=== PATIENT | female | born 1960 | race African-American/Black ===

== ENCOUNTER 2016-08-02 16:56 | Inpatient (IN) | payer SELFPAY ==
[~2016-08-02] VITALS: Ht 160 cm; Wt 73.6 kg
[2016-08-02] VITALS (7 sets, daily range): BP systolic 126–192; BP diastolic 66–94; PULSE 91–120; RESP 20–22; TEMP 97.9–98.9; O2SAT 83–96
[2016-08-02] MEDS ORDERED: RESP: ALBUTEROL 2.5 MG/IPRATROPIUM 0.5 MG NEB (SCH) ONE (17:10)
[2016-08-02] MEDS: RESP: ALBUTEROL 2.5 MG/IPRATROPIUM 0.5 MG NEB (SCH) INH ×2 (17:15→17:16)
[2016-08-02] MEDS ORDERED: SODIUM CHLORIDE 0.9% FLUSH 5 ML FLUSH IVF PRN (17:15)
[2016-08-02] MEDS ORDERED: methylPREDNISolone SOD SUCC 125 MG/2 ML VIAL IVP ONE (17:15)
--- NOTE | 2016-08-02 17:18 | PD ---
HPI Chief Complaint: Respiratory Distress Time Seen by Provider: 17:11 Travel History International Travel<30 days: No Contact w/Intl Traveler<30days: No Traveled to known affect area: No History of Present Illness HPI The patient was seen and examined in the presence of the nurse. She complains of shortness of breath. Patient arrives critically ill and respiratory failure. She is hypoxic with room air saturations of 85 and dyspneic and wheezing and tachypneic. She is a smoker. She denies any diagnosed medical history likely has COPD based on history. She's had some congestion but no productive cough or fever or chest pain. Symptoms are severe. Duration 2 days. No alleviating factors. PFSH Social History Alcohol Use: No Tobacco Use: Yes Substance Use: No Allergies-Medications (Allergen,Severity, Reaction): Coded Allergies: UNOBTAINABLE (Unverified , 08/02/16) Review of Systems General / Constitutional: No: Fever Eyes: No: Visual changes HENT: Positive: Congestion, No: Headaches Cardiovascular: No: Chest Pain or Discomfort Respiratory: Positive: Cough, Shortness of Breath, Wheezing Gastrointestinal: No: Abdominal Pain Genitourinary: No: Dysuria Musculoskeletal: No: Pain Skin: No Rash Neurologic: No: Weakness Psychiatric: No: Depression Endocrine: No: Polydipsia Hematologic/Lymphatic: No: Easy Bruising Physical Exam Narrative GENERAL: Well-nourished, well-developed patient in respiratory distress. SKIN: Warm and dry. HEAD: Atraumatic. Normocephalic. EYES: Pupils equal and round. No scleral icterus. No injection or drainage. ENT: No nasal bleeding or discharge. Mucous membranes pink and moist. NECK: Trachea midline. No JVD. CARDIOVASCULAR: Regular rate and rhythm. No murmur appreciated. Sinus tachycardia 110 RESPIRATORY: Positive accessory muscle use. Diffuse expiratory wheezing. Breath sounds equal bilaterally. No crackles. Respiratory rate in the 40s GASTROINTESTINAL: Abdomen soft, non-tender, nondistended. Hepatic and splenic margins not palpable. MUSCULOSKELETAL: No obvious deformities. No clubbing. No cyanosis. No edema. NEUROLOGICAL: Awake and alert. No obvious cranial nerve deficits. Motor grossly within normal limits. Normal speech. PSYCHIATRIC: Appropriate mood and affect; insight and judgment normal Data Data Last Documented VS Vital Signs Date Time Temp Pulse Resp B/P Pulse Ox O2 Delivery O2 Flow Rate FiO2 08/02/16 17:19 102 22 192/94 92 Nasal Cannula 5 08/02/16 17:00 97.9 Orders Albuterol-Ipratropium Neb (Duoneb Neb) (08/02/16 17:10) Complete Blood Count With Diff (08/02/16 17:11) Basic Metabolic Panel (Bmp) (08/02/16 17:11) Iv Access Insert/Monitor (08/02/16 17:11) Ecg Monitoring (08/02/16 17:11) Oximetry (08/02/16 17:11) Oxygen Administration (08/02/16 17:11) Chest, Single Ap (08/02/16 17:11) Sodium Chloride 0.9% Flush (Ns Flush) (08/02/16 17:15) Methylprednisolone So Succ Inj (Solumedr (08/02/16 17:15) Albuterol-Ipratropium Neb (Duoneb Neb) (08/02/16 17:15) Diet Regular Basic (08/02/16 Dinner) Vital Signs (Adult) MARJORIE.Q4H (08/02/16 18:23) Albuterol-Ipratropium Neb (Duoneb Neb) (08/02/16 20:00) Albuterol Neb (Albuterol Neb) (08/02/16 18:30) Methylprednisolone So Succ Inj (Solumedr (08/02/16 22:00) Enalaprilat Inj (Vasotec Inj) (08/02/16 18:30) Albuterol-Ipratropium Neb (Duoneb Neb) (08/02/16 18:45) Admit Order (Ed Use Only) (08/02/16 18:35) Labs Laboratory Tests Test 08/02/16 17:10 White Blood Count 10.8 TH/MM3 Red Blood Count 4.59 MIL/MM3 Hemoglobin 14.4 GM/DL Hematocrit 42.6 % Mean Corpuscular Volume 92.8 FL Mean Corpuscular Hemoglobin 31.3 PG Mean Corpuscular Hemoglobin 33.8 % Concent Red Cell Distribution Width 13.7 % Platelet Count 190 TH/MM3 Mean Platelet Volume 9.7 FL Neutrophils (%) (Auto) 70.2 % Lymphocytes (%) (Auto) 19.5 % Monocytes (%) (Auto) 5.2 % Eosinophils (%) (Auto) 4.6 % Basophils (%) (Auto) 0.5 % Neutrophils # (Auto) 7.6 TH/MM3 Lymphocytes # (Auto) 2.1 TH/MM3 Monocytes # (Auto) 0.6 TH/MM3 Eosinophils # (Auto) 0.5 TH/MM3 Basophils # (Auto) 0.1 TH/MM3 CBC Comment DIFF FINAL Differential Comment Sodium Level 139 MEQ/L Potassium Level 4.3 MEQ/L Chloride Level 106 MEQ/L Carbon Dioxide Level 27.0 MEQ/L Anion Gap 6 MEQ/L Blood Urea Nitrogen 12 MG/DL Creatinine 0.83 MG/DL Estimat Glomerular Filtration 71 ML/MIN Rate Random Glucose 130 MG/DL Calcium Level 8.9 MG/DL MDM Medical Decision Making Medical Screen Exam Complete: Yes Emergency Medical Condition: Yes Medical Record Reviewed: Yes Differential Diagnosis Differential diagnosis includes COPD, asthma, pneumonia, bronchitis, PE. Narrative Course I have reviewed the patient's electronic medical record. Patient arrives critically ill and acute hypoxic respiratory failure. IV placed I gave her IV steroids and series of 3 nebulizer treatments Placed her on oxygen Extended cardiac monitoring reveals sinus tachycardia without ectopy I reviewed her chest x-ray which shows atelectasis in the bases but no consolidation CBC is normal Metabolic profile is normal On recheck she is much improved and no longer critically ill but still wheezing and short of breath I gave her a fourth nebulizer treatment I have weaned her down to a nasal cannula saturation in the mid 90s Reviewed with hospitalist for admission for respiratory failure which I suspect is COPD given her lifelong smoking but has never really had medical workup Critical Care Narrative Aggregate critical care time was 35 minutes. Time to perform other separately billable procedures was not included in the critical care time. My time did not include minutes spent treating any other patients simultaneously or on activities that did not directly contribute to the patient's treatment. The services I provided to this patient were to treat and/or prevent clinically significant deterioration that could result in: Cardiopulmonary arrest, hypoxemic brain injury, cardiac arrhythmia I provided critical care services requiring my management, as noted below: Chart data review, documentation time, medication orders and management, vital sign assessments/reviewing monitor data, ordering and reviewing lab tests, ordering and interpreting/reviewing x-rays and diagnostic studies, care of the patient and discussion of the patient with the admitting physicians. Diagnosis Primary Impression: Respiratory failure with hypoxia Qualified Code: J96.01 - Acute respiratory failure with hypoxia Admitting Information Admitting Physician Requests: it Armani Liu MD Aug 02, 2016 17:18
[2016-08-02 17:37] LABS: AUTOMATED NEUTROPHIL # 7.6 TH/MM3 (1.8-7.7); BASOPHIL # 0.1 TH/MM3 (0-0.2); BASOPHIL % 0.5 % (0.0-2.0); EOSINOPHIL # 0.5 TH/MM3 (0-0.4); EOSINOPHIL % 4.6 % (0.0-4.0); HEMATOCRIT 42.6 % (35.0-46.0); HEMO FLAGS DIFF FINAL; LYMPH % 19.5 % (9.0-44.0); LYMPHOCYTE # 2.1 TH/MM3 (1.0-4.8); MEAN CELL VOLUME 92.8 FL (80.0-100.0); MEAN CORPUSCULAR HEMOGLOBIN 31.3 PG (27.0-34.0); MEAN CORPUSCULAR HGB CONC 33.8 % (32.0-36.0); MONO % 5.2 % (0.0-8.0); NEUT % 70.2 % (16.0-70.0); PLATELET COUNT 190 TH/MM3 (150-450); RED BLOOD COUNT 4.59 MIL/MM3 (4.00-5.30); RED CELL DISTRIBUTION WIDTH 13.7 % (11.6-17.2); WHITE BLOOD COUNT 10.8 TH/MM3 (4.0-11.0)
--- NOTE | 2016-08-02 17:46 | RADRPT ---
EXAM DATE/TIME: 08/02/2016 17:23 [facility] COMPARISON: No previous studies available for comparison. INDICATIONS : Shortness of breath. MEDICAL HISTORY : None. SURGICAL HISTORY : None. ENCOUNTER: Initial ACUITY: 1 day PAIN SCORE: 0/10 LOCATION: Bilateral chest FINDINGS: A single view of the chest demonstrates the lungs to be symmetrically aerated without evidence of mas s, infiltrate or effusion. There is mild streaky opacity of the lung bases. There are overlying elect rocardiogram leads and oxygen tubing. The cardiomediastinal contours are unremarkable. Osseous struc tures are intact. CONCLUSION: Mild streaky opacity at the lung bases most consistent with atelectasis. Marck Reza MD on August 02, 2016 at 17:44 Board Certified Radiologist. This report was verified electronically.
[2016-08-02 18:12] LABS: POTASSIUM 4.3 MEQ/L (3.5-5.1)
[2016-08-02] MEDS ORDERED: ENALAPRILAT 1.25 MG/ML VIAL IV PUSH PRN (18:30)
[2016-08-02] MEDS ORDERED: RESP: ALBUTEROL 1.25 MG/3 ML NEB (PRN) NEB (18:30)
[2016-08-02] MEDS ORDERED: RESP: ALBUTEROL 2.5 MG/IPRATROPIUM 0.5 MG NEB (SCH) NEB ONE (18:45)
[2016-08-02] MEDS: RESP: ALBUTEROL 2.5 MG/IPRATROPIUM 0.5 MG NEB (SCH) NEB (19:32)
[2016-08-02] MEDS: methylPREDNISolone SOD SUCC 40 MG/1 ML VIAL IV PUSH SCH (22:26)
[2016-08-03] VITALS (8 sets, daily range): BP systolic 127–140; BP diastolic 57–72; PULSE 78–115; RESP 18–20; TEMP 96–96.8; O2SAT 92–100
[2016-08-03] MEDS: RESP: ALBUTEROL 2.5 MG/IPRATROPIUM 0.5 MG NEB (SCH) NEB ×6 (01:14→19:01)
--- NOTE | 2016-08-03 01:25 | HHI.HP ---
[facility] Primary [facility] Physician No Primary Care Physician Admission Diagnosis acute hypoxic resp failure Diagnoses: Chief Complaint: sob, cough Travel History International Travel<30 Days: No Contact w/Intl Traveler <30 Da: No Traveled to Known Affected Are: No History of Present Illness History taken from patient and ED physician. 55 y/o female with a history of presented with sob and cough that has been getting worse the last 2 day. Patient states she has been coughing and has had thick sputum when she coughs and it is causing her to have shortness of breath. She states this is the first time she has had these symptoms. She denies any COPD, and any use of nebulizers. Never been hospitalized. Not on home oxygen. Denies any recent travels. She is a smoker, she smokes 1/2 ppd. Since age of [age] years old. As per ER records, patient was presenting when acute respiratory distress with O2 sats of 85% on room air upon initial arrival. She was using respiratory sensory muscles. She was given continuous nebulizer treatments and Solu-Medrol IV after which she improved. She denies any chest pain, fever, chills, abdominal pain. No history of DVTs, or calf pain. Review of Systems Constitutional: DENIES: Fever, Chills Respiratory: COMPLAINS OF: Cough, Sputum production, Shortness of breath Gastrointestinal: DENIES: Constipation, Diarrhea, Nausea, Vomiting Genitourinary: DENIES: Hematuria, Dysuria Musculoskeletal: DENIES: Back pain, Neck pain Hematologic/lymphatic: DENIES: Lymphadenopathy Immunologic/allergic: DENIES: Urticaria Neurologic: DENIES: Headache Past Family Social History Past Medical History Patient denies any medical history Past Surgical History Reported Medications Reported Meds & Active Scripts Active Active Prescriptions or Reported Medications Unobtainable Allergies: Coded Allergies: UNOBTAINABLE (Unverified , 08/02/16) Active Ordered Medications Current Medications Medications (Trade) Dose Ordered Sig/Jakob Route Start Time Stop Time Status Last Admin (NS Flush) 2 ml UNSCH PRN IVF 08/02/16 17:15 (SoluMEDROL INJ) 40 mg Q8HR IV PUSH 08/02/16 22:00 08/02/16 22:26 (Vasotec Inj) 1.25 mg Q8H PRN IV PUSH 08/02/16 18:30 Family History Mom: Asthma Social History Tobacco use: 1/2 ppd since 14 years old Alcohol use: socially Illicit drug use: denies Physical Exam Vital Signs Vital Signs Date Time Temp Pulse Resp B/P Pulse Ox O2 Delivery O2 Flow Rate FiO2 08/03/16 01:11 78 18 132/68 96 Nasal Cannula 4 08/02/16 21:46 91 20 126/66 96 Nasal Cannula 3 08/02/16 19:32 95 Nasal Cannula 4.00 08/02/16 18:48 120 22 158/94 94 Nasal Cannula 4 08/02/16 17:19 102 22 192/94 92 Nasal Cannula 5 08/02/16 17:19 84 Room Air 08/02/16 17:17 94 Nasal Cannula 2.00 08/02/16 17:00 97.9 102 22 192/94 84 08/02/16 16:57 98.9 110 22 172/93 83 Room Air Physical Exam GENERAL: This is a well-nourished, well-developed patient, in no apparent distress. SKIN: No rashes, ecchymoses or lesions. Cool and dry. HEAD: Atraumatic. Normocephalic. EYES: Pupils equal round and reactive. ENT: Nose without bleeding, purulent drainage or septal hematoma. Airway patent. NECK: Trachea midline. No JVD CARDIOVASCULAR: Regular rate and rhythm without murmurs, gallops, or rubs. RESPIRATORY: Bilateral expiratory wheezing, tight lung sounds. Patient was receiving nebulizer treatments at the time of our examination. GASTROINTESTINAL: Abdomen soft, non-tender, nondistended. No hepato-splenomegaly , or palpable masses. No guarding. MUSCULOSKELETAL: Extremities without clubbing, cyanosis, or edema. No joint tenderness, effusion, or edema noted. No calf tenderness. NEUROLOGICAL: Awake and alert. Motor and sensory grossly within normal limits. Normal speech. Laboratory Laboratory Tests Test 08/02/16 17:10 White Blood Count 10.8 Red Blood Count 4.59 Hemoglobin 14.4 Hematocrit 42.6 Mean Corpuscular Volume 92.8 Mean Corpuscular Hemoglobin 31.3 Mean Corpuscular Hemoglobin 33.8 Concent Red Cell Distribution Width 13.7 Platelet Count 190 Mean Platelet Volume 9.7 Neutrophils (%) (Auto) 70.2 Lymphocytes (%) (Auto) 19.5 Monocytes (%) (Auto) 5.2 Eosinophils (%) (Auto) 4.6 Basophils (%) (Auto) 0.5 Neutrophils # (Auto) 7.6 Lymphocytes # (Auto) 2.1 Monocytes # (Auto) 0.6 Eosinophils # (Auto) 0.5 Basophils # (Auto) 0.1 CBC Comment DIFF FINAL Differential Comment Sodium Level 139 Potassium Level 4.3 Chloride Level 106 Carbon Dioxide Level 27.0 Anion Gap 6 Blood Urea Nitrogen 12 Creatinine 0.83 Estimat Glomerular Filtration 71 Rate Random Glucose 130 Calcium Level 8.9 Result Diagram: 08/02/16170908/02/161709 Imaging Last Impressions Chest X-Ray 08/02/161710 Signed Impressions: Service Date/Time: Tuesday, August 02, 2016 17:23 - CONCLUSION: Mild streaky opacity at the lung bases most consistent with atelectasis. Marck Reza MD Assessment and Plan Problem List: (1) COPD exacerbation ICD Code: J44.1 Status: Acute Assessment and Plan 55 y/o female with no medical history presented with: COPD exacerbation Images: Chest x-ray shows Mild streaky opacity at the lung bases most consistent with atelectasis -Solu-Medrol IV Q8hr -DuoNeb's scheduled and PRN -Oxygen as needed -Case management consult for help with outpatient PCP. Patient will need MDI prescriptions prior to hospital discharge. Would also need slow taper of prednisone therapy upon discharge. DVT prophylaxis: SCDs GI prophylaxis on pantoprazole. Written by Dottie VELAZQUEZ, acting as scribe for Dr. Martínez on 08/03 at 0115. The documentation accurately reflects the work performed [id number] and decisions made by me and the physician Dr Martínez on 08/03. The documentation accurately reflects the work performed [id number] by me on at 0115 Discussed Condition With Patient and ED physician Physician Certification 2 Midnight Certification Type: Admission for Inpatient Services Order for Inpatient Services The services are ordered in accordance with Medicare regulations or non- Medicare payer requirements, as applicable. In the case of services not specified as inpatient-only, they are appropriately provided as inpatient services in accordance with the 2-midnight benchmark. Estimated LOS (days): 2 days is the estimated time the patient will need to remain in the hospital, assuming treatment plan goals are met and no additional complications. Post-Hospital Plan: Dottie Cruz Aug 03, 2016 01:25 Fish Martínez MD Aug 03, 2016 07:55
[2016-08-03] MEDS ORDERED: ASPI81CH CHEW (02:26)
[2016-08-03] MEDS: methylPREDNISolone SOD SUCC 40 MG/1 ML VIAL IV PUSH SCH ×3 (06:02→21:44)
[2016-08-03] MEDS ORDERED: RESP: ALBUTEROL 0.63 MG/3 ML NEB (PRN) NEB (09:00)
[2016-08-03] MEDS ORDERED: ALBUTEROL SULFATE 90 MCG/ACT HFA 8 GM INHALER INH PRN (09:00)
[2016-08-03 09:46] LABS: AUTOMATED NEUTROPHIL # 9.3 TH/MM3 (1.8-7.7); BASOPHIL % 0.2 % (0.0-2.0); HEMO FLAGS DIFF FINAL; LYMPH % 10.6 % (9.0-44.0); LYMPHOCYTE # 1.1 TH/MM3 (1.0-4.8); MEAN CELL VOLUME 93.2 FL (80.0-100.0); MEAN CORPUSCULAR HEMOGLOBIN 30.8 PG (27.0-34.0); MEAN CORPUSCULAR HGB CONC 33.1 % (32.0-36.0); MONO % 2.2 % (0.0-8.0); PLATELET COUNT 199 TH/MM3 (150-450); RED CELL DISTRIBUTION WIDTH 13.7 % (11.6-17.2); WHITE BLOOD COUNT 10.6 TH/MM3 (4.0-11.0)
[2016-08-03 10:33] LABS: POTASSIUM 3.6 MEQ/L (3.5-5.1)
[2016-08-03 10:52] LABS: BLOOD GAS CARBOXYHEMOGLOBIN 1.2 % (0-4); BLOOD GAS HCO3 24 mmol/L (22-26); BLOOD GAS METHEMOGLOBIN 1.2 % (0-2); BLOOD GAS O2 HGB SATURATION 90 % (90-100); BLOOD GAS OXYGEN CONTENT 17.1 Vol % (12.0-20.0); BLOOD GAS PCO2 38 mmHg (38-42); BLOOD GAS PO2 66 mmHg (61-120); BLOOD GAS TOTAL HGB 13.6 G/DL (12.0-16.0); TEMP CORR TO 98.6
[2016-08-03 10:53] LABS: CRITICAL VALUE NO; DRAW SITE RT RADIAL; LITER FLOW 2 L/M; NUMBER OF ARTERIAL PUNCTURES 2; OXYGEN DEVICE NASAL CANNULA; STAT NO; ULNAR PULSE PRESENT
[2016-08-03] MEDS: PANTOPRAZOLE SOD 40 MG DELAYED RELEASE TAB PO SCH (11:44)
--- NOTE | 2016-08-03 12:53 | HHI.PR ---
Subjective Remarks Follow-up COPD and respiratory failure. Improving shortness of breath. Discussed with RN Objective Vitals Vital Signs Date Time Temp Pulse Resp B/P Pulse Ox O2 Delivery O2 Flow Rate FiO2 08/03/16 08:17 94 Nasal Cannula 2.00 08/03/16 07:50 96.7 109 20 129/65 94 08/03/16 02:48 96.7 93 18 127/70 100 08/03/16 01:11 78 18 132/68 96 Nasal Cannula 4 08/02/16 21:46 91 20 126/66 96 Nasal Cannula 3 08/02/16 19:32 95 Nasal Cannula 4.00 08/02/16 18:48 120 22 158/94 94 Nasal Cannula 4 08/02/16 17:19 102 22 192/94 92 Nasal Cannula 5 08/02/16 17:19 84 Room Air 08/02/16 17:17 94 Nasal Cannula 2.00 08/02/16 17:00 97.9 102 22 192/94 84 08/02/16 16:57 98.9 110 22 172/93 83 Room Air I/O 08/02/16 08/02/16 08/02/16 08/03/16 08/03/16 08/03/16 07:00 15:00 23:00 07:00 15:00 23:00 Intake Total 300 ml Balance 300 ml Intake Oral 300 ml # Voids 0 # Bowel Movements 0 Result Diagram: 08/03/16 0853 08/03/16 0853 Imaging Last Impressions Chest X-Ray 08/02/16 1711 Signed Impressions: Service Date/Time: Tuesday, August 02, 2016 17:23 - CONCLUSION: Mild streaky opacity at the lung bases most consistent with atelectasis. Marck Reza MD Objective Remarks GENERAL: This is a well-nourished, well-developed patient, in no apparent distress. SKIN: No rashes, ecchymoses or lesions. Cool and dry. HEAD: Atraumatic. Normocephalic. EYES: Pupils equal round and reactive. ENT: Nose without bleeding, purulent drainage or septal hematoma. Airway patent. NECK: Trachea midline. No JVD CARDIOVASCULAR: Regular rate and rhythm without murmurs, gallops, or rubs. RESPIRATORY: Improving expiratory wheezes. GASTROINTESTINAL: Abdomen soft, non-tender, nondistended. No guarding. MUSCULOSKELETAL: Extremities without clubbing, cyanosis, or edema. No joint tenderness, effusion, or edema noted. No calf tenderness. NEUROLOGICAL: Awake and alert. Motor and sensory grossly within normal limits. Normal speech. Procedures none A/P Problem List: (1) COPD exacerbation ICD Code: J44.1 Status: Acute Assessment and Plan 55 y/o female with no medical history presented with: COPD exacerbation Images: Chest x-ray shows Mild streaky opacity at the lung bases most consistent with atelectasis -Solu-Medrol IV Q8hr -DuoNeb's scheduled and PRN -Wean oxygen to keep saturation over 92%, walk test. -Start Z-Josias. Tobacco cessation PFTs outpatient -Case management consult for help with outpatient PCP. Patient will need MDI prescriptions prior to hospital discharge. Would also need slow taper of prednisone therapy upon discharge. Hyperglycemia. Check A1c DVT prophylaxis: SCDs GI prophylaxis on pantoprazole. Discharge Planning Discharge in 1-2 days Lavelle Henriquez MD Aug 03, 2016 12:53
--- NOTE | 2016-08-03 13:46 | HHI.PR ---
Objective Vitals Vital Signs Date Time Temp Pulse Resp B/P Pulse Ox O2 Delivery O2 Flow Rate FiO2 08/03/16 08:17 94 Nasal Cannula 2.00 08/03/16 07:50 96.7 109 20 129/65 94 08/03/16 02:48 96.7 93 18 127/70 100 08/03/16 01:11 78 18 132/68 96 Nasal Cannula 4 08/02/16 21:46 91 20 126/66 96 Nasal Cannula 3 08/02/16 19:32 95 Nasal Cannula 4.00 08/02/16 18:48 120 22 158/94 94 Nasal Cannula 4 08/02/16 17:19 102 22 192/94 92 Nasal Cannula 5 08/02/16 17:19 84 Room Air 08/02/16 17:17 94 Nasal Cannula 2.00 08/02/16 17:00 97.9 102 22 192/94 84 08/02/16 16:57 98.9 110 22 172/93 83 Room Air I/O 08/02/16 08/02/16 08/02/16 08/03/16 08/03/16 08/03/16 07:00 15:00 23:00 07:00 15:00 23:00 Intake Total 300 ml Balance 300 ml Intake Oral 300 ml # Voids 0 # Bowel Movements 0 Result Diagram: 08/03/1653 08/03/1653 Objective Remarks GENERAL: This is a well-nourished, well-developed patient, in no apparent distress. SKIN: No rashes, ecchymoses or lesions. Cool and dry. HEAD: Atraumatic. Normocephalic. EYES: Pupils equal round and reactive. ENT: Nose without bleeding, purulent drainage or septal hematoma. Airway patent. NECK: Trachea midline. No JVD CARDIOVASCULAR: Regular rate and rhythm without murmurs, gallops, or rubs. RESPIRATORY: Bilateral expiratory wheezing, tight lung sounds. Patient was receiving nebulizer treatments at the time of our examination. GASTROINTESTINAL: Abdomen soft, non-tender, nondistended. No hepato-splenomegaly , or palpable masses. No guarding. MUSCULOSKELETAL: Extremities without clubbing, cyanosis, or edema. No joint tenderness, effusion, or edema noted. No calf tenderness. NEUROLOGICAL: Awake and alert. Motor and sensory grossly within normal limits. Normal speech. A/P Problem List: (1) COPD exacerbation ICD Code: J44.1 Status: Acute Assessment and Plan 55 y/o female with no medical history presented with: COPD exacerbation Images: Chest x-ray shows Mild streaky opacity at the lung bases most consistent with atelectasis -Solu-Medrol IV Q8hr -DuoNeb's scheduled and PRN -Oxygen as needed -Case management consult for help with outpatient PCP. Patient will need MDI prescriptions prior to hospital discharge. Would also need slow taper of prednisone therapy upon discharge. DVT prophylaxis: SCDs GI prophylaxis on pantoprazole. Lavelle Henriquez MD Aug 03, 2016 13:46
[2016-08-03] MEDS ORDERED: PRED20 PO (17:37)
[2016-08-03] MEDS ORDERED: ZITH250T PO (17:37)
[2016-08-03] MEDS ORDERED: IPRAAER INH (17:37)
[2016-08-03] MEDS ORDERED: VENTAER INH (17:37)
[2016-08-03] MEDS ORDERED: OXYGENTANK NAS.CANULA (17:38)
--- NOTE | 2016-08-03 17:38 | HHI.DCPOC ---
Discharge Care Plan Diagnosis: (1) Respiratory failure with hypoxia (2) COPD exacerbation Your Health Problems Are: Difficulty with ADL Exercise Tolerance Goals to Promote Your Health * To prevent worsening of your condition and complications * To maintain your health at the optimal level Directions to Meet Your Goals Take your medications as prescribed Follow your dietary instruction Follow activity as directed Keep your appointments as scheduled Take your immunizations and boosters as scheduled If your symptoms worsen call your PCP, if no PCP go to Urgent Care Center or Emergency Room Smoking is Dangerous to Your Health. Avoid second hand smoke Call the 24-hour hour crisis hotline for domestic abuse at Lavelle Henriquez MD Aug 03, 2016 17:38
[2016-08-03] MEDS ORDERED: DOCUSATE SODIUM 50 MG/SENNA 8.6 MG TAB PO PRN (17:45)
[2016-08-03] MEDS ORDERED: DOCUSATE SODIUM 100 MG CAP PO PRN (17:45)
[2016-08-03] MEDS ORDERED: ALUMINUM/MAGNESIUM/SIMETH 30 ML CUP PO PRN (17:45)
[2016-08-03] MEDS ORDERED: ONDANSETRON HCL 4 MG/2 ML VIAL IV PRN (17:45)
[2016-08-03] MEDS ORDERED: ACETAMINOPHEN 325 MG TAB PO PRN (17:45)
[2016-08-03] MEDS ORDERED: CALCIUM CARBONATE 500 MG CHEWABLE TAB CHEW PRN (17:45)
[2016-08-03] MEDS ORDERED: MAGNESIUM HYDROXIDE SUSP 30 ML CUP PO PRN (17:45)
[2016-08-03] MEDS ORDERED: AZITHROMYCIN 250 MG TAB PO ONE (18:00)
[2016-08-03 20:01] LABS: HEMOGLOBIN A1a 1.1 %; HEMOGLOBIN A1b 0.9 %; HEMOGLOBIN Ao 84.5 %; HEMOGLOBIN F 0.8 %; HEMOGLOBIN LA1C 2.4 %; HEMOGLOBIN P3 3.9 %
[2016-08-04] VITALS (8 sets, daily range): BP systolic 135–158; BP diastolic 66–83; PULSE 91–102; RESP 18–20; TEMP 96.2–98.4; O2SAT 90–98
[2016-08-04] MEDS: methylPREDNISolone SOD SUCC 40 MG/1 ML VIAL IV PUSH SCH ×3 (05:39→23:04)
[2016-08-04] MEDS: AZITHROMYCIN 250 MG TAB PO SCH (07:34)
[2016-08-04] MEDS: PANTOPRAZOLE SOD 40 MG DELAYED RELEASE TAB PO SCH (07:34)
[2016-08-04] MEDS: RESP: ALBUTEROL 2.5 MG/IPRATROPIUM 0.5 MG NEB (SCH) NEB ×4 (08:07→20:53)
--- NOTE | 2016-08-04 09:33 | HHI.PR ---
Subjective Remarks Follow-up COPD. She is improving slight transient dizziness when ambulating but no shortness of breath. Failed walk test 80% on room air. Discussed with RN Objective Vitals Vital Signs Date Time Temp Pulse Resp B/P Pulse Ox O2 Delivery O2 Flow Rate FiO2 08/04/16 08:07 98 Nasal Cannula 2.00 08/04/16 07:56 96.6 91 20 146/72 90 08/04/16 04:00 96.2 97 18 135/69 92 08/04/16 00:01 96.7 100 18 140/66 95 08/03/16 20:00 96.0 115 20 136/72 95 08/03/16 15:50 96.6 94 20 140/68 95 08/03/16 15:16 98 Nasal Cannula 2.00 08/03/16 11:50 96.8 109 20 128/57 92 I/O 08/03/16 08/03/16 08/03/16 08/04/16 08/04/16 08/04/16 06:59 14:59 22:59 06:59 14:59 22:59 Intake Total 300 ml 462 ml 450 ml 300 ml Balance 300 ml 462 ml 450 ml 300 ml Intake Oral 300 ml 462 ml 450 ml 300 ml # Voids 0 1 2 3 # Bowel Movements 0 0 0 0 Result Diagram: 08/03/1685208/03/1653 Objective Remarks GENERAL: This is a well-nourished, well-developed patient, in no apparent distress. SKIN: No rashes, ecchymoses or lesions. Cool and dry. HEAD: Atraumatic. Normocephalic. EYES: Pupils equal round and reactive. ENT: Nose without bleeding, purulent drainage or septal hematoma. Airway patent. NECK: Trachea midline. No JVD CARDIOVASCULAR: Regular rate and rhythm without murmurs, gallops, or rubs. RESPIRATORY: Still with expiratory wheezes. GASTROINTESTINAL: Abdomen soft, non-tender, nondistended. No guarding. MUSCULOSKELETAL: Extremities without clubbing, cyanosis, or edema. No joint tenderness, effusion, or edema noted. No calf tenderness. NEUROLOGICAL: Awake and alert. Motor and sensory grossly within normal limits. Normal speech. Procedures none A/P Problem List: (1) COPD exacerbation ICD Code: J44.1 Status: Acute Assessment and Plan 55 y/o female with no medical history presented with: COPD exacerbation improving but still with significant expiratory wheezes Images: Chest x-ray shows Mild streaky opacity at the lung bases most consistent with atelectasis -Solu-Medrol IV Q8hr will be continued -DuoNeb's scheduled and PRN -Wean oxygen to keep saturation over 92%, walk test. -Continue Z-Josias. Tobacco cessation PFTs outpatient -Case management consult for help with outpatient PCP. Patient will need MDI prescriptions prior to hospital discharge. Would also need slow taper of prednisone therapy upon discharge. Hyperglycemia. A1c 5.8 DVT prophylaxis: SCDs GI prophylaxis on pantoprazole. Discharge Planning Not stable for discharge Lavelle Henriquez MD Aug 04, 2016 09:33
[2016-08-05] VITALS (8 sets, daily range): BP systolic 124–149; BP diastolic 67–79; PULSE 79–106; RESP 16–20; TEMP 96–97.4; O2SAT 91–99
[2016-08-05] MEDS: methylPREDNISolone SOD SUCC 40 MG/1 ML VIAL IV PUSH SCH ×3 (05:24→21:52)
[2016-08-05] MEDS: RESP: ALBUTEROL 2.5 MG/IPRATROPIUM 0.5 MG NEB (SCH) NEB ×4 (07:41→20:06)
[2016-08-05] MEDS: PANTOPRAZOLE SOD 40 MG DELAYED RELEASE TAB PO SCH (09:37)
[2016-08-05] MEDS: AZITHROMYCIN 250 MG TAB PO SCH (09:38)
--- NOTE | 2016-08-05 17:17 | HHI.PR ---
Subjective Remarks Follow up COPD with hypoxia. Improving exercise tolerance. No dizziness with exercise. Discussed with case management, no payor source for home oxygen Objective Vitals Vital Signs Date Time Temp Pulse Resp B/P Pulse Ox O2 Delivery O2 Flow Rate FiO2 08/05/16 12:00 97.3 97 20 132/79 91 08/05/16 08:00 96.2 79 20 131/76 99 08/05/16 07:42 96 Nasal Cannula 2.00 08/05/16 07:42 2.00 08/05/16 04:00 96.2 102 20 149/73 94 08/05/16 00:19 97.4 106 16 142/67 92 08/04/16 20:53 95 Nasal Cannula 2.00 08/04/16 20:50 20 08/04/16 20:00 97.4 101 20 138/83 92 I/O 08/04/16 08/04/16 08/04/16 08/05/16 08/05/16 08/05/16 07:00 15:00 23:00 07:00 15:00 23:00 Intake Total 300 ml 786 ml 400 ml 360 ml 5 ml Balance 300 ml 786 ml 400 ml 360 ml 5 ml Intake Oral 300 ml 786 ml 400 ml 360 ml IV Total 5 ml # Voids 3 2 1 3 # Bowel Movements 0 0 0 0 Result Diagram: 08/03/16 0853 08/03/16 0853 Imaging Last Impressions Chest X-Ray 08/02/16 1711 Signed Impressions: Service Date/Time: Tuesday, August 02, 2016 17:23 - CONCLUSION: Mild streaky opacity at the lung bases most consistent with atelectasis. Marck Reza MD Objective Remarks GENERAL: This is a well-nourished, well-developed patient, in no apparent distress. SKIN: No rashes, ecchymoses or lesions. Cool and dry. HEAD: Atraumatic. Normocephalic. EYES: Pupils equal round and reactive. ENT: Nose without bleeding, purulent drainage or septal hematoma. Airway patent. NECK: Trachea midline. No JVD CARDIOVASCULAR: Regular rate and rhythm without murmurs, gallops, or rubs. RESPIRATORY: Improving expiratory wheezes. GASTROINTESTINAL: Abdomen soft, non-tender, nondistended. No guarding. MUSCULOSKELETAL: Extremities without clubbing, cyanosis, or edema. No joint tenderness, effusion, or edema noted. No calf tenderness. NEUROLOGICAL: Awake and alert. Motor and sensory grossly within normal limits. Normal speech. Procedures none A/P Problem List: (1) COPD exacerbation ICD Code: J44.1 Status: Acute Assessment and Plan 55 y/o female with no medical history presented with: COPD exacerbation improving but still mildly hypoxic requiring oxygen. Images: Chest x-ray shows Mild streaky opacity at the lung bases most consistent with atelectasis -Solu-Medrol IV Q8hr will be continued -DuoNeb's scheduled and PRN -Wean oxygen to keep saturation over 92%, failed walk test. -Continue Z-Josias. Tobacco cessation PFTs outpatient -Case management consult for help with outpatient PCP. Patient will need MDI prescriptions prior to hospital discharge. Would also need slow taper of prednisone therapy upon discharge. Hyperglycemia. A1c 5.8 DVT prophylaxis: SCDs GI prophylaxis on pantoprazole. Discharge Planning Discharge if home oxygen arranged Lavelle Henriquez MD Aug 05, 2016 17:17
[2016-08-06] VITALS: BP 138/76; PULSE 93; RESP 19; TEMP 96.6; O2SAT 96
[2016-08-06 04:00] VITALS: BP 130/60; PULSE 87; RESP 18; TEMP 97; O2SAT 96
[2016-08-06] MEDS: methylPREDNISolone SOD SUCC 40 MG/1 ML VIAL IV PUSH SCH (05:32)
[2016-08-06 08:00] VITALS: BP 172/92; PULSE 82; RESP 24; TEMP 97.2; O2SAT 92
[2016-08-06] MEDS: AZITHROMYCIN 250 MG TAB PO SCH (08:37)
[2016-08-06] MEDS: PANTOPRAZOLE SOD 40 MG DELAYED RELEASE TAB PO SCH (08:37)
[2016-08-06] MEDS: RESP: ALBUTEROL 2.5 MG/IPRATROPIUM 0.5 MG NEB (SCH) NEB ×4 (09:07→21:01)
--- NOTE | 2016-08-06 11:38 | HHI.PR ---
Subjective Remarks Follow-up COPD. Improving dyspnea. Patient states her family will be able to pay for home oxygen. Discussed with RN in case management Objective Vitals Vital Signs Date Time Temp Pulse Resp B/P Pulse Ox O2 Delivery O2 Flow Rate FiO2 08/06/16 09:07 Nasal Cannula 2.50 08/06/16 08:00 97.2 82 24 172/92 92 08/06/16 04:00 97.0 87 18 130/60 96 08/06/16 00:00 96.6 93 19 138/76 96 08/05/16 20:06 98 Nasal Cannula 2.50 08/05/16 20:00 96.8 94 19 139/71 97 08/05/16 16:00 96.0 97 18 124/78 94 08/05/16 12:00 97.3 97 20 132/79 91 I/O 08/05/16 08/05/16 08/05/16 08/06/16 08/06/16 08/06/16 07:00 15:00 23:00 07:00 15:00 23:00 Intake Total 360 ml 5 ml 480 ml 480 ml Balance 360 ml 5 ml 480 ml 480 ml Intake Oral 360 ml 480 ml 480 ml IV Total 5 ml # Voids 3 2 1 # Bowel Movements 0 1 Result Diagram: 08/03/16 0853 08/03/16 0853 Imaging Last Impressions Chest X-Ray 08/02/16 1711 Signed Impressions: Service Date/Time: Tuesday, August 02, 2016 17:23 - CONCLUSION: Mild streaky opacity at the lung bases most consistent with atelectasis. Marck Reza MD Objective Remarks GENERAL: This is a well-nourished, well-developed patient, in no apparent distress. SKIN: No rashes, ecchymoses or lesions. Cool and dry. HEAD: Atraumatic. Normocephalic. EYES: Pupils equal round and reactive. ENT: Nose without bleeding, purulent drainage or septal hematoma. Airway patent. NECK: Trachea midline. No JVD CARDIOVASCULAR: Regular rate and rhythm without murmurs, gallops, or rubs. RESPIRATORY: No expiratory wheezes. GASTROINTESTINAL: Abdomen soft, non-tender, nondistended. No guarding. MUSCULOSKELETAL: Extremities without clubbing, cyanosis, or edema. No joint tenderness, effusion, or edema noted. No calf tenderness. NEUROLOGICAL: Awake and alert. Motor and sensory grossly within normal limits. Normal speech. Procedures none A/P Problem List: (1) COPD exacerbation ICD Code: J44.1 Status: Acute Assessment and Plan 55 y/o female with no medical history presented with: COPD exacerbation improving on minimal oxygen Images: Chest x-ray shows Mild streaky opacity at the lung bases most consistent with atelectasis -Solu-Medrol IV Q8hr will be discontinued and start by mouth prednisone -DuoNeb's scheduled and PRN -Wean oxygen to keep saturation over 92%, failed walk test. We will repeat walk test -Continue Z-Josias. Tobacco cessation PFTs outpatient -Case management consult for help with outpatient PCP. Patient will need MDI prescriptions prior to hospital discharge. Would also need slow taper of prednisone therapy upon discharge. Hyperglycemia. A1c 5.8 DVT prophylaxis: SCDs GI prophylaxis on pantoprazole. Discharge Planning Discharge if home oxygen arranged Lavelle Henriquez MD Aug 06, 2016 11:38
[2016-08-06] MEDS: predniSONE 20 MG TAB PO SCH (13:00)
[2016-08-06 14:30] VITALS: BP 151/80; PULSE 86; RESP 18; TEMP 96.8; O2SAT 93
--- NOTE | 2016-08-06 15:25 | HHI.DS ---
Discharge Summary Admission Date Aug 02, 2016 at 18:38 Discharge Date: Aug 08, 2016 Admitting Diagnosis acute hypoxic resp failure (1) COPD exacerbation ICD Code: J44.1 Diagnosis: Principal Procedures none Brief History - From Admission History taken from patient and ED physician. 55 y/o female with a history of presented with sob and cough that has been getting worse the last 2 day. Patient states she has been coughing and has had thick sputum when she coughs and it is causing her to have shortness of breath. She states this is the first time she has had these symptoms. She denies any COPD, and any use of nebulizers. Never been hospitalized. Not on home oxygen. Denies any recent travels. She is a smoker, she smokes 1/2 ppd. Since age of [age] years old. As per ER records, patient was presenting when acute respiratory distress with O2 sats of 85% on room air upon initial arrival. She was using respiratory sensory muscles. She was given continuous nebulizer treatments and Solu-Medrol IV after which she improved. She denies any chest pain, fever, chills, abdominal pain. No history of DVTs, or calf pain. CBC/BMP: 08/03/16 0853 08/03/16 0853 Imaging Last Impressions Chest X-Ray 08/02/16 1711 Signed Impressions: Service Date/Time: Tuesday, August 02, 2016 17:23 - CONCLUSION: Mild streaky opacity at the lung bases most consistent with atelectasis. Marck Reza MD PE at Discharge GENERAL: This is a well-nourished, well-developed patient, in no apparent distress. SKIN: No rashes, ecchymoses or lesions. Cool and dry. HEAD: Atraumatic. Normocephalic. EYES: Pupils equal round and reactive. ENT: Nose without bleeding, purulent drainage or septal hematoma. Airway patent. NECK: Trachea midline. No JVD CARDIOVASCULAR: Regular rate and rhythm without murmurs, gallops, or rubs. RESPIRATORY: No expiratory wheezes. GASTROINTESTINAL: Abdomen soft, non-tender, nondistended. No guarding. MUSCULOSKELETAL: Extremities without clubbing, cyanosis, or edema. No joint tenderness, effusion, or edema noted. No calf tenderness. NEUROLOGICAL: Awake and alert. Motor and sensory grossly within normal limits. Normal speech. Hospital Course 55 y/o female with no medical history presented with: COPD exacerbation improved now off oxygen with good exercise tolerance Images: Chest x-ray shows Mild streaky opacity at the lung bases most consistent with atelectasis -Solu-Medrol IV Q8hr discontinued and continue prednisone taper -DuoNeb's scheduled and PRN -Wean oxygen to keep saturation over 92%, passed oxygen walk test -Continue Z-Josias last dose today. Tobacco cessation PFTs outpatient -Case management consult for help with outpatient PCP. Patient will need MDI prescriptions prior to hospital discharge. Would also need slow taper of prednisone therapy upon discharge. Hyperglycemia. A1c 5.8 DVT prophylaxis: SCDs GI prophylaxis on pantoprazole. Pt Condition on Discharge: Stable Discharge Disposition: Discharge Home Discharge Time: <= 30 minutes Discharge Instructions DIET: Follow Instructions for: As Tolerated, No Restrictions Activities you can perform: Regular-No Restrictions Activities to Avoid: Driving Follow up Referrals: PCP Follow-up - 1 Week Pulmonology - 1 Week New Medications: Ipratropium-Albuterol Inh (Combivent Respimat Inh) 20-100 Shelter/Act Aero 1 PUFF INH QID Asthma Management #1 Ref 0 INHALER Prednisone (Prednisone) 20 Mg Tab 20 MG PO DIRECTED 40 MG twice a day x 3 days, then 20 MG daily x 3 days, then 10 MG daily x 3 days Inflammation #12 Ref 0 TAB Albuterol 18 GM Inh (Ventolin Hfa 18 GM Inh) 90 Mcg/Act Aer 2 PUFF INH Q6H PRN SHORTNESS OF BREATH #1 INHALER Azithromycin (Zithromax) 250 Mg Tab 250 MG PO DAILY Stop date 08/07/16 Infection #3 TAB Lavelle Henriquez MD Aug 06, 2016 15:25 Lavelle Henriquez MD Aug 06, 2016 15:25
[2016-08-06 20:00] VITALS: BP 137/76; PULSE 89; RESP 19; TEMP 97.1; O2SAT 93
[2016-08-06 21:01] VITALS: O2SAT 98
[2016-08-07] VITALS (8 sets, daily range): BP systolic 120–154; BP diastolic 67–92; PULSE 77–91; RESP 18–20; TEMP 96–98.4; O2SAT 93–97
[2016-08-07] MEDS: RESP: ALBUTEROL 2.5 MG/IPRATROPIUM 0.5 MG NEB (SCH) NEB ×2 (08:25→11:41)
[2016-08-07] MEDS: predniSONE 20 MG TAB PO SCH (08:58)
[2016-08-07] MEDS: PANTOPRAZOLE SOD 40 MG DELAYED RELEASE TAB PO SCH (08:58)
[2016-08-07] MEDS: AZITHROMYCIN 250 MG TAB PO SCH (08:58)
--- NOTE | 2016-08-07 09:20 | HHI.PR ---
Subjective Remarks Follow-up COPD. Improving shortness of breath on 2 L nasal cannula. Discussed with RN Objective Vitals Vital Signs Date Time Temp Pulse Resp B/P Pulse Ox O2 Delivery O2 Flow Rate FiO2 08/07/16 08:28 95 Nasal Cannula 2.00 08/07/16 08:00 98.4 87 20 122/67 94 08/07/16 04:00 97.4 79 20 149/74 95 08/07/16 00:00 96.7 91 20 154/76 95 08/06/16 21:01 98 Nasal Cannula 2.00 08/06/16 20:00 97.1 89 19 137/76 93 08/06/16 14:30 96.8 86 18 151/80 93 I/O 08/06/16 08/06/16 08/06/16 08/07/16 08/07/16 08/07/16 06:59 14:59 22:59 06:59 14:59 22:59 Intake Total 480 ml 360 ml 960 ml 240 ml Balance 480 ml 360 ml 960 ml 240 ml Intake Oral 480 ml 360 ml 960 ml 240 ml # Voids 1 2 6 2 # Bowel Movements 1 Result Diagram: 08/03/1653 08/03/16 0853 Objective Remarks GENERAL: This is a well-nourished, well-developed patient, in no apparent distress. SKIN: No rashes, ecchymoses or lesions. Cool and dry. HEAD: Atraumatic. Normocephalic. EYES: Pupils equal round and reactive. ENT: Nose without bleeding, purulent drainage or septal hematoma. Airway patent. NECK: Trachea midline. No JVD CARDIOVASCULAR: Regular rate and rhythm without murmurs, gallops, or rubs. RESPIRATORY: Mild expiratory wheezes just received nebulization. GASTROINTESTINAL: Abdomen soft, non-tender, nondistended. No guarding. MUSCULOSKELETAL: Extremities without clubbing, cyanosis, or edema. No joint tenderness, effusion, or edema noted. No calf tenderness. NEUROLOGICAL: Awake and alert. Motor and sensory grossly within normal limits. Normal speech. Procedures none A/P Problem List: (1) COPD exacerbation ICD Code: J44.1 Status: Acute Assessment and Plan 55 y/o female with no medical history presented with: COPD exacerbation improving on minimal oxygen Images: Chest x-ray shows Mild streaky opacity at the lung bases most consistent with atelectasis -Status post Solu-Medrol continue prednisone -DuoNeb's scheduled and PRN -Wean oxygen to keep saturation over 92%, failed walk test. We will repeat walk test still failed -Continue Z-Josias. Tobacco cessation PFTs outpatient -Case management consult for help with outpatient PCP. Patient will need MDI prescriptions prior to hospital discharge. Would also need slow taper of prednisone therapy upon discharge. Hyperglycemia. A1c 5.8 DVT prophylaxis: SCDs GI prophylaxis on pantoprazole. Discharge Planning Discharge if home oxygen arranged Lavelle Henriquez MD Aug 07, 2016 09:20
[2016-08-08] VITALS: BP 138/75; PULSE 84; RESP 20; TEMP 96.1; O2SAT 95
[2016-08-08 04:00] VITALS: BP 126/74; PULSE 77; RESP 20; TEMP 96.4; O2SAT 94
[2016-08-08 07:45] VITALS: O2SAT 95
[2016-08-08 08:00] VITALS: BP 157/86; PULSE 76; RESP 20; TEMP 96.6; O2SAT 95
[2016-08-08] MEDS: predniSONE 20 MG TAB PO SCH (09:26)
[2016-08-08] MEDS: PANTOPRAZOLE SOD 40 MG DELAYED RELEASE TAB PO SCH (09:26)
--- NOTE | 2016-08-08 11:35 | HHI.PR ---
Objective Vitals Vital Signs Date Time Temp Pulse Resp B/P Pulse Ox O2 Delivery O2 Flow Rate FiO2 08/08/16 08:00 96.6 76 20 157/86 95 08/08/16 07:45 95 21 08/08/16 04:00 96.4 77 20 126/74 94 08/08/16 00:00 96.1 84 20 138/75 95 08/07/16 20:00 96.3 84 19 139/82 93 08/07/16 17:30 96.4 77 18 125/92 96 08/07/16 16:00 97 08/07/16 12:00 96.0 84 20 120/71 94 I/O 08/07/16 08/07/16 08/07/16 08/08/16 08/08/16 08/08/16 07:00 15:00 23:00 07:00 15:00 23:00 Intake Total 240 ml 720 ml 480 ml 240 ml Balance 240 ml 720 ml 480 ml 240 ml Intake Oral 240 ml 720 ml 480 ml 240 ml # Voids 2 3 3 2 # Bowel Movements 2 2 1 Objective Remarks GENERAL: This is a well-nourished, well-developed patient, in no apparent distress. SKIN: No rashes, ecchymoses or lesions. Cool and dry. HEAD: Atraumatic. Normocephalic. EYES: Pupils equal round and reactive. ENT: Nose without bleeding, purulent drainage or septal hematoma. Airway patent. NECK: Trachea midline. No JVD CARDIOVASCULAR: Regular rate and rhythm without murmurs, gallops, or rubs. RESPIRATORY: Mild expiratory wheezes just received nebulization. GASTROINTESTINAL: Abdomen soft, non-tender, nondistended. No guarding. MUSCULOSKELETAL: Extremities without clubbing, cyanosis, or edema. No joint tenderness, effusion, or edema noted. No calf tenderness. NEUROLOGICAL: Awake and alert. Motor and sensory grossly within normal limits. Normal speech. Procedures none A/P Problem List: (1) COPD exacerbation ICD Code: J44.1 Status: Acute Assessment and Plan 55 y/o female with no medical history presented with: COPD exacerbation improving on minimal oxygen Images: Chest x-ray shows Mild streaky opacity at the lung bases most consistent with atelectasis -Status post Solu-Medrol continue prednisone -DuoNeb's scheduled and PRN -Wean oxygen to keep saturation over 92%, failed walk test. We will repeat walk test still failed -Continue Z-Josias. Tobacco cessation PFTs outpatient -Case management consult for help with outpatient PCP. Patient will need MDI prescriptions prior to hospital discharge. Would also need slow taper of prednisone therapy upon discharge. Hyperglycemia. A1c 5.8 DVT prophylaxis: SCDs GI prophylaxis on pantoprazole. Discharge Planning Discharge if home oxygen arranged Lavelle Henriquez MD Aug 08, 2016 11:35
== END 2016-08-08 12:19 | disposition home or self-care (01) | DRG 191 ==
LOC: NEPE 16:56 → NEDA 18:38 → OBSVTOIN 18:38 → INTOOBSV 18:38 → NEDH 23:17 → HOCB 08-03 02:05
PROVIDERS: ADMIT Internal Medicine; ATTEND Internal Medicine
PROC: 3E0F7GC Introduction of Other Therapeutic Substance into Respiratory Tract, Via Natural or Artificial Opening (ICD-10-PCS; principal; 2016-08-02)
DX: J44.1 Chronic obstructive pulmonary disease with (acute) exacerbation (principal); J98.11 Atelectasis; R09.02 Hypoxemia; F17.210 Nicotine dependence, cigarettes, uncomplicated; R73.9 Hyperglycemia, unspecified; Z82.5 Family history of asthma and other chronic lower respiratory diseases
CPT/HCPCS: 36600; 71010; 80048; 82805; 83036; 85025; 94150; 94620; 94640; 94664; J2920; J2930; J7512